=== PATIENT | female | born 1955 | race Caucasian/White ===

== ENCOUNTER 2021-10-31 10:04 | Emergency (ER) | payer MEDICARE, MEDICAID, SELFPAY ==
[2021-10-31 10:15] VITALS: BP 143/80; PULSE 98; RESP 18; TEMP 36.9; O2SAT 98; BMI 30.4
--- NOTE | 2021-10-31 10:38 | ED_ITS ---
HPI - General Adult General Chief complaint: Skin/Abscess/Foreign Body Stated complaint: Rash that itches and spreading Time Seen by Provider: 10/31/21 10:23 History of Present Illness HPI narrative: This 66-year-old female comes in with generalized pruritic hives. This is been present over the past couple weeks and was more located in her lower extremities initially but now has spread throughout most of her body. She does not know of any recent exposures that explain this rash. She was on an antibiotic a couple months ago followed by [facility] but these symptoms all resolved before the hives started. She does have some excoriations down by her ankles because of intense pruritus where she scratched through the surface of the skin. Related Data Home Medications Medication Instructions Recorded Confirmed atorvastatin 20 mg tablet mg 10/31/21 metformin 500 mg tablet,extended mg PO 10/31/21 release 24 hr Previous Rx's Medication Instructions Recorded methylprednisolone 4 mg tablets in See Rx Instructions PO .COMPLEX 10/31/21 a dose pack (Quant the Newsrol (Juliano)) #21 ea triamcinolone acetonide 0.1 % 1 applic topical TID PRN #454 grams 10/31/21 topical cream Allergies Allergy/AdvReac Type Severity Reaction Status Date / Time No Known Drug Allergies Allergy Verified 10/31/21 10:14 Review of Systems Status of ROS: Reports: 10 or more systems reviewed and unremarkable except as noted in History and below Narrative: Constitutional: No fevers, no weight gain or loss. Eyes: No discharge. No vision changes. HENT: No congestion, no sore throat, no ear pain. Cardiovascular: No chest pain, no palpitations. Respiratory: No shortness of breath, no wheezes, no cough. Gastrointestinal: No abdominal pain, no vomiting, no diarrhea. Genitourinary: No dysuria, no hematuria. Musculoskeletal: Normal range of motion. Skin: Generalized macular low papular rash which is pruritic. Neurological: No dizziness, weakness, sensory change, speech change. Endo/Heme/Allergies: No bruising or bleeding. No polydipsia. Pysch: no suicidality, no anxiety, no insomnia. All other systems reviewed and are negative. Exam Narrative: Exam Narrative: Constitutional: Well-developed, well-nourished, no acute distress. HEENT: Normocephalic, atraumatic. Neck: Normal range of motion. Nontender. Supple. Heart: Intact distal pulses. Lungs: No chest discomfort. No wheezes, rhonchi, or rales. Abdomen: Nontender. Back: Normal range of motion. Extremities: Normal range of motion. No injury. Skin: Intact. Generalized maculopapular rash throughout most of her body. Neurologic: No altered sensation. No weakness. Alert and oriented. Psychiatric: No suicidality. No anxiety or depression. No insomnia. Nursing notes and vitals signs are reviewed. Const: Vital Signs, click to edit/add: Vital Signs - 24 hr 10/31/21 10:15 Temperature 98.5 F Pulse Rate [Right Pulse Oximeter] 98 Respiratory Rate 18 Blood Pressure [Ri ght Upper Arm] 143/80 H Pulse Oximetry 98 Course Vital Signs Vital signs: Initial Vital Signs Temperature 98.5 F 10/31/21 10:15 Temperature Source Temporal Artery Scan 10/31/21 10:15 Pulse Rate 98 10/31/21 10:15 Respiratory Rate 18 10/31/21 10:15 Blood Pressure 143/80 H 10/31/21 10:15 Blood Pressure Mean 101 10/31/21 10:15 Blood Pressure Position Sitting 10/31/21 10:15 Pulse Oximetry 98 10/31/21 10:15 Vital Signs Temperature 98.5 F 10/31/21 10:15 Pulse Rate 98 10/31/21 10:15 Respiratory Rate 18 10/31/21 10:15 Blood Pressure 143/80 H 10/31/21 10:15 Pulse Oximetry 98 10/31/21 10:15 Temperature 98.5 F 10/31/21 10:15 Pulse Rate 98 10/31/21 10:15 Respiratory Rate 18 10/31/21 10:15 Blood Pressure 143/80 H 10/31/21 10:15 Pulse Oximetry 98 10/31/21 10:15 Medical Decision Making MDM Narrative Medical decision making narrative: This patient comes in with generalized hives with an unknown allergen triggering it. She has been taking antihistamines but states that this has spread throughout her body more recently. She has been taking fexofenadine daily. I recommended that she take this medicine 3 times a day for a week, then twice daily for another week, and then daily thereafter. Additionally she received a prescription for Medrol Dosepak and triamcinolone cream. She is not taking NSAIDs. Discharge Plan Discharge Clinical Impression: Urticaria, Full body hives Patient Disposition: Home, Self-Care Condition: Stable Additional Instructions: Take fexofenadine 180 mg 3 times daily for 1 week, then twice daily for the next week, then daily thereafter. Use triamcinolone cream also as needed and directed. Follow up with MD or return if worsening. Prescriptions: New methylprednisolone [Medrol (Juliano)] 4 mg tablets,dose pack See Rx Instructions .ROUTE .COMPLEX Qty: 21 0RF Rx Instructions: orally per package directions triamcinolone acetonide 0.1 % cream 1 applic topical TID PRNQty: 454 0RF No Action atorvastatin 20 mg tablet metformin 500 mg tablet extended release 24 hr PO Follow Up/Referrals: Erin Bedolla MD [Primary Care Provider] - Stand Alone Forms: [employer] Info Instructions
== END 2021-10-31 11:15 | disposition home or self-care (01) ==
LOC: ED 10:50
PROVIDERS: Emergency Provider Emergency Medicine Emergency Medical Services; PCP Family Medicine
DX: L50.9 Urticaria, unspecified (principal)
CPT/HCPCS: 99282; 99283; 99284